=== PATIENT | female | born 1940 | race Caucasian/White ===

== ENCOUNTER 2022-04-12 03:55 | Inpatient (IN) | payer MEDICARE, BC, SELFPAY ==
--- NOTE | 2022-04-12 | ECHO_ITS ---
Patient Info Name: Lilliana Booth Age: 81 years : 1940 Gender: Female Ht: 63 in Wt: 124 lbs BSA: 1.58 m2 BP: 140 / 75 mmHg Heart Rhythm: Sinus Rhythm Technical Quality: Fair Exam Date: 04/12/2022 11:09 AM Exam Location: [facility] Patient Status: Outpatient Admit Date: 04/12/2022 Staff Ordering Physician: Trixie Andrade MD Rod Cup Filler: Celia Shultz RDCS Attending Provider: Trixie Andrade MD Referring Physician: Lupe CADET; Exam Type: CA echo doppler color flow Study Info Indications - syncope Complete two-dimensional, color flow and Doppler transthoracic echocardiogram is performed. Summary 1. Complete two-dimensional, color flow and Doppler transthoracic echocardiogram is performed. 2. Left ventricular chamber dimension is normal. 3. Left ventricular systolic function is normal, estimated at 60-65%. 4. The left ventricular diastolic function is grade I diastolic dysfunction. 5. E/e' 12 is mildly elevated. 6. The mitral valve has moderately calcified annulus. 7. There is trace tricuspid valve regurgitation. 8. No pulmonary hypertension, estimated pulmonary arterial systolic pressure is 31 mmHg. Left Ventricle E/e' 12 is mildly elevated. Left ventricular chamber dimension is normal. Left ventricular systolic function is normal, estimated at 60-65%. The left ventricular diastolic function is grade I diastolic dysfunction. Right Ventricle Right ventricular chamber dimension is normal. Right ventricular systolic function is normal. Left Atria Left atrial chamber dimension is normal. Right Atria Right atrial chamber dimension is normal. Aortic Valve The aortic valve is trileaflet. There is no aortic valve stenosis. There is no aortic valve regurgitation. Pulmonic Valve There is no pulmonic regurgitation. Mitral Valve The mitral valve has moderately calcified annulus. There is no mitral valve stenosis. There is mild mitral valve regurgitation. Tricuspid Valve There is trace tricuspid valve regurgitation. No pulmonary hypertension, estimated pulmonary arterial systolic pressure is 31 mmHg. Pericardium/Pleural There is no pericardial effusion. Inferior Vena Cava Normal inferior vena cava with >50% collapse upon inspiration consistent with normal right atrial pressure, 5 mmHg. Aorta The aortic root size at the sinus of Valsalva is normal. Left Ventricular Outflow Tract Name Value Normal LVOT 2D LVOT Diameter 2.0 cm LVOT Doppler LVOT Peak Gradient 3 mmHg LVOT Mean Gradient 2 mmHg LVOT VTI 15 cm LVOT VTI/AV VTI Ratio 0.8 LVOT Stroke Volume 47 ml LVOT CO 3.9 l/min LVOT CI 2.5 l/min/m2 Pulmonic Valve Name Value Normal RVOT Doppler
--- NOTE | ~2022-04-12 | CT_ITS ---
EXAMINATION: CT brain wo con DATE: 04/12/2022 04:42 INDICATION: Fall. Head trauma. TECHNIQUE: Computed tomography (CT) of the head was performed without intravenous contrast. The mA wa s adjusted according to patient size. Iterative reconstruction technique was employed. Exam dose: 60 5.33 mGy-cm total exam DLP. COMPARISON: 03/06/2019 CT head FINDINGS: There is central and cortical cerebral and cerebellar moderately prominent atrophy. Mild ce rebral atherosclerotic calcification. There is nonspecific diminished attenuation of the cerebral whi te matter, likely due to chronic small vessel ischemic changes. Chronic mild comparison thickening of the right sphenoid sinus. Mild soft tissue thickening of ethmoi d air cells. Small fluid level right maxillary sinus. The mastoid air cells are normally developed an d aerated. There is cephalohematoma high over the right parietal convexity with mild subcutaneous emphysema cons istent with associated laceration. No associated tumor contrecoup intracranial injury is noted. No fracture or bone destruction of the cranial vault. IMPRESSION: High right parietal cephalohematoma and subcutaneous emphysema; no skull fracture or acu te intracranial finding Small fluid level in the right maxillary sinus Chronic mild mucosal thickening of the right sphenoid sinus Reviewed, dictated and finalized at [facility]. Reviewed, dictated and finalized at location [facility]. IMPRESSION: High right parietal cephalohematoma and subcutaneous emphysema; no skull fracture or acute intracranial finding Small fluid level in the right maxillary sinus Chronic mild mucosal thickening of the right sphenoid sinus
--- NOTE | ~2022-04-12 | US_ITS ---
EXAMINATION: US carotid duplex BI DATE: 04/12/2022 09:17 INDICATION: Syncope TECHNIQUE: Grayscale, color Doppler, and pulsed Doppler images of the cervical carotid arteries were obtained. The degree of vessel stenosis is placed in one of the following categories: normal, <50%, 5 0-69%, >=70% but less than near-occlusion, near-occlusion, or total occlusion. Note that percent sten osis relative to normal distal artery lumen diameter is indirectly measured from velocity measurement s as described by Jim, et al. Radiology 2003; [id number]. COMPARISON: None. FINDINGS: RIGHT: The right common carotid artery (CCA) peak systolic velocity (PSV) is 94 cm/s. The right internal car otid artery (ICA) PSV is 118 cm/s. The right ICA end-diastolic velocity (EDV) is 28 cm/s. The right I CA/CCA PSV ratio is 1.2. Grayscale and color Doppler images yield an estimate of <50% diameter reduct ion from plaque in the ICA. The external carotid artery (ECA) PSV is 104 cm/s. There is antegrade ivanna w in the right vertebral artery. LEFT: The left CCA PSV is 78 cm/s. The left ICA PSV is 118 cm/s. The left ICA EDV is 19 cm/s. The left ICA/ CCA PSV ratio is 1.8. Grayscale and color Doppler images yield an estimate of 50-69% diameter reducti on from plaque in the ICA. The ECA PSV is 90 cm/s. There is antegrade flow in the left vertebral parisa ry. IMPRESSION: 1. <50% stenosis in the right internal carotid artery. 2. <50% stenosis in the left internal carotid artery. Reviewed, dictated and finalized at location [facility].
--- NOTE | ~2022-04-12 | XR_ITS ---
EXAMINATION: XR chest 1V DATE: 04/12/2022 04:36 INDICATION: Fall TECHNIQUE: frontal view of the chest was obtained. COMPARISON: Chest radiograph dated 03/06/2019 FINDINGS: The lungs remain clear with no focal airspace opacities, pulmonary edema, pleural effusion or pneumot horax. The cardiomediastinal silhouette is normal. Left rotator cuff arthropathy. Mild upper thoracic levocurvature with mild spondylosis. IMPRESSION: 1. No acute cardiopulmonary disease. Reviewed, dictated and finalized at location [facility].
--- NOTE | ~2022-04-12 | CT_ITS ---
EXAMINATION: CT facial & cervical spine wo DATE: 04/12/2022 04:42 INDICATION: Fall. Head, facial, neck injuries TECHNIQUE: Computed tomography (CT) of the facial bones and maxillofacial region and cervical spine w as performed without intravenous contrast. Automated exposure control and iterative reconstruction te chnique were employed. Exam dose: 173.39 mGy-cm total exam DLP. COMPARISON: None. FINDINGS: There is soft tissue infiltration of the adipose tissue lateral and superior to the right z ygomatic arch consistent with facial contusion, with minimal subcutaneous emphysema suggesting lacera tion. The orbital contents are symmetric and unremarkable. The frontozygomatic sutures, orbital rims and rose and zygomatic arches are intact. Normal alignment at the temporal mandibular joints. No man dibular fracture is detected. There are subtle buckling of the anterior wall of the right maxillary sinus and the posterolateral wa ll of the right maxillary sinus are noted with minimal subcutaneous emphysema in the anterior and pos terior lateral aspects of the maxillary sinus at the fracture sites, consistent with virtually nondis placed maxillary fractures. Left maxillary sinus is intact. There is a small fluid level in the right maxillary sinus. There is mild mucoperiosteal thickening in the lower aspect of each maxillary sinus and chronic mucoperiosteal thickening along the posterolate ral wall of the right sphenoid sinus. The mastoid air cells are normally developed and aerated. The nasal bones and anterior maxillary spine are intact. There is reversal cervical curvature which may be due to muscle spasm or positioning. C1 and C2 are normally aligned and the odontoid process is intact. No fracture or dislocation, locked facet or prevertebral soft tissue swelling. Moderate prominent degenerative disc disease at C3-4, C4-5, C5-6, C6-7. There is posterior spurring a t C5-C6 and particularly C6-7. Minimal anterolisthesis at C7-T1. There is degenerative change at the apophyseal joints and uncovertebral joints. Status post right thyroid lobectomy IMPRESSION: Virtually nondisplaced focal buckle fractures at the anterior and posterolateral rose o f the right maxillary sinus with small fluid level in the right maxillary sinus, minimal subcutaneous emphysema adjacent to the maxillary fracture sites Reversal of cervical curvature which may be due to muscle spasm Cervical spondylosis; no cervical fracture is detected Dr. Cramer telephoned the report of focal subtle virtually nondisplaced buckle fractures of the anterio r and posterolateral rose of the right maxillary sinus to emergency room physician Dr. Brumfield on at 0831 hours. Reviewed, dictated and finalized at [facility]. Reviewed, dictated and finalized at location [facility]. IMPRESSION: Virtually nondisplaced focal buckle fractures at the anterior and posterolateral rose of the right maxillary sinus with small fluid level in the right maxillary sinus, minimal subcutaneous emphysema adjacent to the maxillar y fracture sites Reversal of cervical curvature which may be due to muscle spasm Cervical spondylosis; no cervical fracture is detected Dr. Cramer telephoned the report of focal subtle virtually nondisplaced buckle fr actures of the anterior and posterolateral rose of the right maxillary sinus t o emergency room physician Dr. Brumfield on 04/12/2022 at 0831 hours.
[2022-04-12 03:55] VITALS: BP 157/75; PULSE 97; RESP 18; TEMP 36.6; O2SAT 100
--- NOTE | 2022-04-12 04:13 | ECG_ITS ---
Measurements Intervals [place] Rate: 95 P: 74 VA: 156 QRS: -10 QRSD: 95 T: 32 QT: 329 QTc: 414 Interpretive Statements SINUS RHYTHM BASELINE ARTIFACT- I, II, III, AVR, AVL, V1-V2, V4-V5 NORMAL ECG Electronically Signed On 04-12-2022 7:00:50 CDT by Justino Flores D.O.
[2022-04-12] MEDS: ACETAMINOPHEN 500 MG TABLET 1000 MG PO ×2 (04:40→09:05)
[2022-04-12] MEDS: TETANUS,DIPHTHERIA,AC PERTUSSIS ADULT (0.5 ML) BOOSTRIX IM (04:41)
[2022-04-12 05:07] LABS: Basophils Absolute Auto 0.1 K/mm3 (0.0-0.1); Basophils Percent Auto 0.5 % (0.2-1.2); Eosinophils Percent Auto 0.1 % (0-4.4); Hematocrit 41.9 % (37.0-47.0); Hemoglobin 13.6 g/dL (12.0-15.0); Immature Granulocyte Absolute 0.14 K/mm3 (0.00-0.031); Immature Granulocyte Percent A 1.2 % (0-0.5); Lymphocytes Absolute Auto 0.61 K/mm3 (0.9-3.2); Lymphocytes Percent Auto 5.1 % (18.3-44.2); Mean Corpuscular HGB Conc 32.5 g/dl (32-36); Mean Corpuscular Hemoglobin 31.3 pg (26-34); Mean Corpuscular Volume 96.5 fl (80-100); Mean Platelet Volume 9.7 fl (7.4-10.4); Monocytes Absolute Auto 0.7 K/mm3 (0.1-0.6); Monocytes Percent Auto 5.6 % (2.6-8.5); Neutrophils Absolute Auto 10.4 K/mm3 (1.3-6.7); Neutrophils Percent Auto 87.5 % (45.5-73.1); Platelet Count Result 249 k/mm3 (150-375); Red Blood Count 4.34 M/mm3 (4.2-5.4); Red Cell Distribution Width 12.6 % (11.5-14.5); White Blood Count 11.9 K/mm3 (4.5-10.0)
[2022-04-12 05:19] LABS: Appearance Urine Clear (Clear); Bilirubin Urine Negative (Negative); Blood Urine 1+ (Negative); Color Urine Yellow (Yellow); Glucose Urine UA Negative (Negative); Ketones Urine Negative (Negative); Leukocyte Esterase Ur Negative LEU/UL (Negative); Nitrate Urine Negative (Negative); Protein Urine 1+ mg/dL (Negative); Urobilinogen Urine 0.2 mg/dL (<2.0); pH Urine 7.5 (5.0-9.0)
[2022-04-12 05:23] LABS: Alanine Aminotransferase 24 U/L (6-35); Albumin Level 4.5 g/dL (3.5-5.1); Alkaline Phosphatase 79 U/L (38-126); Anion Gap 8 mmol/L (8-16); Aspartate Amino Transferase 42 U/L (14-36); Bilirubin,Total 0.8 mg/dL (0.2-1.3); Blood Urea Nitrogen 15 mg/dL (7-17); Calcium 9.1 mg/dL (8.4-10.2); Carbon Dioxide 28 mmol/L (22-30); Chloride 101 mmol/L (98-107); Estimated CRCL calculation 44 ml/min; Estimated Glomerular Filt Rate > 60; Glucose 116 mg/dL (65-110); Magnesium 2.1 mg/dL (1.6-2.3); Sodium 137 mmol/L (137-145)
[2022-04-12 05:24] LABS: Mucus Urine Rare /lpf; Squamous Epithelial Cell Urine Rare /hpf (Few); WBC Urine 0-3 /hpf
[2022-04-12 05:29] LABS: Add Urine Microscopic? YES
[2022-04-12 05:54] LABS: SARS-CoV-2 RNA PCR Positive
--- NOTE | 2022-04-12 06:47 | ED.HEATRA ---
HPI - Head Injury General Chief complaint: Head Injury Stated complaint: GLF, HEAD LAC Time Seen by Provider: 04/12/22 03:59 History of Present Illness HPI Narrative: 81-year-old female who presents here after she went to the bathroom, and then fell and hit her head, she is not exactly sure what happened but states that over the last few days she has been having increased nasal congestion and sinus discomfort, with feeling of vertigo, nausea and vomiting. She also has been having decreased appetite and has not been eating or drinking as much as usual. No cough, difficulty breathing, chest pain, no new focal numbness or weakness, minimal headache. Unsure last tetanus shot. Has had similar symptoms/vertigo in the past. Related Data Home Medications Medication Instructions Recorded Confirmed buspirone 10 mg tablet 10 mg PO BID 01/22/21 01/22/21 fluticasone furoate 27.5 1 spray intranasal DAILY 01/22/21 01/22/21 mcg/actuation nasal spray,suspension (Flonase Sensimist) ibuprofen 200 mg tablet 200 mg PO Q6H PRN 01/22/21 01/22/21 loratadine 10 mg tablet (Claritin) 10 mg PO DAILY 01/22/21 01/22/21 multivitamin 1 tablet PO DAILY 01/22/21 01/22/21 omega-3 fatty acids 1,000 mg 1,000 mg PO DAILY 01/22/21 01/22/21 capsule (Fish Oil Concentrate) Allergies Allergy/AdvReac Type Severity Reaction Status Date / Time Penicillins Allergy Severe RASH Verified 04/12/22 04:01 Sulfa (Sulfonamide Allergy Severe RASH Verified 04/12/22 04:01 Antibiotics) Review of Systems Review of Systems: CONST: No fever. HEENT: Head injury, no blurry vision, runny nose C/V: No chest pain RESP: No cough GI: Nausea vomiting : No dysuria. M/S: No joint pain. SKIN: No rash. NEURO: Vertigo without focal numbness or weakness PSYCH: [No depression] [facility] Past Medical History Medical History (Updated 04/12/22 @ 08:08 by Cheli Mercedes MD) Subjective tinnitus of both ears Social History Social History Smoking status: Never smoker Alcohol intake: never Substance use: never Exam Narrative: EXAMINATION OF ORGAN SYSTEMS/BODY AREAS: Constitutional: Vital signs per nursing GENERAL:[No acute distress, non-toxic appearing.] HEAD: Contusion to right side of face with 3 cm laceration that is superficial, not gaping EYES: EOMI, right eye contusion without change in vision ENT: Left ear impacted cerumen LUNGS: Nonlabored breathing. HEART: [Regular rate and rhythm] ABD: [Soft], [nontender to palpation] EXT: Normal range of motion SKIN: Laceration to right side of face NEURO: [Alert and oriented x 3. No gross focal sensory or strength deficits.] PSYCH: Normal affect Course Vital Signs Vital signs: Vital Signs Temperature 97.9 F 04/12/22 03:55 Pulse Rate 97 04/12/22 03:55 Respiratory Rate 18 04/12/22 03:55 Blood Pressure 157/75 H 04/12/22 03:55 Pulse Oximetry 100 04/12/22 03:55 Oxygen Delivery Room Air 04/12/22 03:55 Temperature 97.9 F 04/12/22 03:55 Pulse Rate 88 04/12/22 07:01 Respiratory Rate 16 04/12/22 07:01 Blood Pressure 140/75 04/12/22 07:01 Pulse Oximetry 95 04/12/22 07:01 Oxygen Delivery Room Air 04/12/22 03:55 Procedures Ear Wax Removal Left Ear: Cerumenolytic Used: other Results: Re-examined: cerumen removed completely TM Examination: TM(s) intact, normal appearance Ear Canal Exam: atraumatic Patient Tolerated Procedure: well Complications: no problems Technique: ear canal irrigated Laceration Laceration 1: Site: face Side (If applicable): right Size (cm): 3 Description: linear Depth: simple, single layer Local Anesthetic: none Pre-repair: wound explored, irrigated and irrigated extensively ====== Skin Level ====== Skin layer closed with: dermabond and steri strips ====== Subcutaneous Layer ====== ==
[2022-04-12] MEDS: LACTATED RINGERS 1,000 ML 999 ML IV CONT (06:56)
[2022-04-12] MEDS: ONDANSETRON INJ 4 MG/2 ML VIAL IV PUSH (06:57)
[2022-04-12] MEDS: MECLIZINE HCL 25 MG TABLET PO (06:58)
[2022-04-12 07:01] VITALS: BP 140/75; PULSE 88; RESP 16; O2SAT 95
[2022-04-12] MEDS: ENOXAPARIN 40 MG/0.4 ML SYRINGE SUB-Q (09:05)
--- NOTE | 2022-04-12 12:50 | PM.IMHP ---
H&P: HPI History of Present Illness Date/Time: 04/12/22 12:50 <Becki Murray PA-C - Last Filed: 04/12/22 21:45> Chief Complaint: Ground level fall. <Becki Murray PA-C - Last Filed: 04/12/22 21:45> Narrative: This is an 81-year-old female who presented to the emergency department via EMS from home earlier this morning for evaluation of a ground level fall. The patient got up at around 03:00 to use the restroom and she does not remember much thereafter. Daughter was wakened from sleep with the patient calling out for help and she was found in the prone position on the bathroom floor. She felt a bit nauseated at that time but that has since passed. She and her daughter were able to get her up and back to bed. She denies antecedent symptoms prior to the fall but admits that she does not really remember what happened. With further questioning she has not been feeling well for the last several days with sinus congestion, vertigo, nausea, and occasional episodes of emesis. She tested positive for SARS-CoV-2 by PCR in the emergency department today and she tells me that her daughter had COVID earlier this week. CT of the head and cervical spine demonstrated a right parietal cephalohematoma and a virtually nondisplaced focal buckle fracture of the anterior and posterolateral rose of the right maxillary sinus. It is presumed that she had a syncopal episode and she is being admitted in this setting for further workup. At the time my evaluation she has no significant complaints aside from generalized ?arthritis? pain and she is requesting a Tylenol Arthritis. She denies headache, visual changes, vertigo, lightheadedness, chest pain, pleuritic pain, palpitations, shortness of breath, vomiting, and diarrhea. <Becki Murray PA-C - Last Filed: 04/12/22 21:45> Review of Systems Review of Systems: Twelve systems were reviewed and are negative except for as per HPI. <Becki Murray PA-C - Last Filed: 04/12/22 21:45> [facility] Past Medical History Medical History: Medical History Anxiety Osteoporosis <Becki Murray PA-C - Last Filed: 04/12/22 21:45> Surgical History Surgical History: Surgical History History of colonoscopy (01/2019) Diverticulosis and internal hemorrhoids. History of partial thyroidectomy Status post-operative repair of closed fracture of left hip (08/2011) <Becki Murray PA-C - Last Filed: 04/12/22 21:45> Family History Family History: Family History Other Cancer Colon polyp Diabetes mellitus <Becki Murray PA-C - Last Filed: 04/12/22 21:45> Social History Social History: Social History Social History: Surrogate medical decision maker: Abiola Mireles, daughter. Code status: Full code. Smoking status: Never smoker Alcohol intake: never Substance use: never Substance use type: does not use Additional living arrangements comments: The patient lives with her daughter in [place]. Spiritual care concerns: No <Becki Murray PA-C - Last Filed: 04/12/22 21:45> Meds Home Medications and Allergies Home medications: Home Medications Medication Instructions Recorded Confirmed Type buspirone 10 mg tablet 10 mg PO BID 01/22/21 04/12/22 History fluticasone furoate 27.5 1 spray intranasal DAILY 01/22/21 04/12/22 History mcg/actuation nasal spray,suspension (Flonase Sensimist) ibuprofen 200 mg tablet 200 mg PO Q6H PRN Fever Or Pain 01/22/21 04/12/22 History loratadine 10 mg tablet (Claritin) 10 mg PO DAILY 01/22/21 04/12/22 History multivitamin 1 tablet PO DAILY 01/22/21 04/12/22 History omega-3 fatty acids 1,000 mg 1,000 mg PO DAILY 01/22/21 04/12/22 History capsule (F
[2022-04-12 19:50] VITALS: PULSE 88; RESP 16; TEMP 36.6; O2SAT 95
[2022-04-12 22:00] VITALS: BP 176/81; PULSE 106; RESP 20; TEMP 38.4; O2SAT 94
[2022-04-13] VITALS (11 sets, daily range): BP systolic 104–145; BP diastolic 54–79; PULSE 68–106; RESP 16–24; TEMP 36.6–38.4; O2SAT 93–98
[2022-04-13] MEDS: busPIRone HCL 10 MG TABLET PO ×3 (00:14→16:32)
[2022-04-13] MEDS: ACETAMINOPHEN 325 MG TABLET 650 MG PO (00:14)
[2022-04-13 06:29] LABS: Hemoglobin 12.8 g/dL (12.0-15.0); Platelet Count Result 220 k/mm3 (150-375); Red Cell Distribution Width 12.9 % (11.5-14.5); White Blood Count 7.9 K/mm3 (4.5-10.0)
[2022-04-13 06:41] LABS: Anion Gap 4 mmol/L (8-16); Blood Urea Nitrogen 17 mg/dL (7-17); CRP 8.3 mg/dL (<1.0); Calcium 8.5 mg/dL (8.4-10.2); Carbon Dioxide 32 mmol/L (22-30); Chloride 103 mmol/L (98-107); Estimated CRCL calculation 51 ml/min; Estimated Glomerular Filt Rate > 60; Glucose 84 mg/dL (65-110); Magnesium 2.2 mg/dL (1.6-2.3); Potassium 4.1 mmol/L (3.4-5.0); Sodium 139 mmol/L (137-145)
--- NOTE | 2022-04-13 09:25 | PM.IMPN ---
Progress Note: A&P Assessment and Plan (1) Syncope: Code(s): R55 - Syncope and collapse Status: Acute Assessment and Plan: - Telemetry is stable at NSR. - Orthostatic Vital Signs negative. - ECHO performed and demonstrates normal LVSF w/EF of 60-65%. - There is grade 1 Diastolic dysfunction. - No Pulmonary HTN. - Carotid Dopplers demonstrate <50% stenosis in both the Right ICA and the Left ICA. - Continue fall precautions. - Repeat labs and recheck labs. - PT evaluation was performed and they are recommending SNF upon placement. Care coordination consult placed. (2) Closed head injury: Code(s): S09.90XA - Unspecified injury of head, initial encounter Status: Acute Assessment and Plan: - Neuro checks demonstrate intact status. - Hematoma is noted to right parietal scalp. - No vomiting and no headache now 24 hours after the initial fall. She does endorse dizziness to the RN. - Hold any blood thinning agents. (3) Maxillary sinus fracture: Code(s): S02.401A - Maxillary fracture, unspecified side, initial encounter for closed fracture Status: Acute Assessment and Plan: - Case discussed with Dr. Buckner and she can follow-up with him as an outpatient. (4) COVID-19: Code(s): U07.1 - COVID-19 Status: Acute Assessment and Plan: - Was noted to not be a candidate for Remdesivir and Dex and was out of window for Paxlovid. - Supportive care will be continued. - Continue to monitor labs and VS. She is not requiring any supplemental oxygen. Additional Plan Barrier to discharge: Awaiting Care coordination to assist with discharge planning. Time Spent With Patient Time: 17 minutes Subjective Date/time seen: 04/13/22 09:25 This very pleasant 81-year-old female patient was examined at the bedside today in interval assessment after being admitted to the hospital positive for COVID-19 with a new ground level fall yesterday that was questionable for syncopal episode. In that fall she sustained a right parietal hematoma as well as a buckle fracture of the right maxillary sinus. Dr. Maya will follow up with patient as outpatient regarding the maxillary sinus fracture. Today patient has just finished eating breakfast, she says her pain is currently tolerable although she does endorse headache and some dizziness. She has normal neurological status otherwise and EOMs are intact. She denies any chest pain, dyspnea, nausea, vomiting, diarrhea, dysuria, hematuria, urinary frequency. She still has not been evaluated by Physical therapy for safety to return home. She endorses that her daughter and her daughters spouse lives with her at home. Review of Systems Review of Systems: Twelve point review of systems was reviewed. All systems reviewed & are unremarkable except as noted in HPI and below Exam Const: General: comfortable and no acute distress Other: Sitting high Walden's HENMT: Ears: TM's normal bilaterally (Specifically no right-sided hemo tympanum.) General nose exam: Normal nares present and no epistaxis Mouth: Yes moist mucous membranes Eyes: General: appearance abnormal, both eyes (Ecchymosis around the right eye with tenderness.) Sclera: scleral abnormality right (Appears bruised, yellowish in color, but not icteric.) Pupils: Equal, round and reactive pupils present EOM: EOMs intact bilaterally Other: No nystagmus. Neck: Neck: supple and no JVD Thyroid: thyroid normal Carotids: no bruits Lymphatic: lymphadenopathy not noted Resp: Effort & Inspection: normal respiratory effort Auscultation: clear to auscultation bilaterally Cardio: Rate: regular rate Rhythm: regular rhythm Heart sounds: no gallops, no murmurs and no rubs GI: Inspection: non-distended GI Palp: Yes Soft to palpation, No Tenderness to palpation present (GI) and No Guarding due to palpation present (GI) Auscultation: normal bowel sounds Skin: General skin exam: No nor
[2022-04-13] MEDS: OMEGA 3 POLYUNSAT FATTY ACIDS 1 GM CAP PO (10:22)
[2022-04-13] MEDS: MULTIVITAMINS THERAPEUTIC TAB (*BKC) 1 TABLET PO (10:23)
[2022-04-13] MEDS: LORATADINE 10 MG TABLET PO (10:23)
[2022-04-13] MEDS: FLUTICASONE PROPIONATE 0.05% NA SPR 16 GM BTL (*BKC) 1 SPRAY NASAL (10:34)
[2022-04-14] VITALS: BP 133/76; PULSE 91; PULSE 93; RESP 16; TEMP 37.7; O2SAT 96
[2022-04-14 04:00] VITALS: BP 141/80; PULSE 97; RESP 18; TEMP 37.4; O2SAT 95
[2022-04-14 06:30] LABS: Basophils Percent Auto 0.6 % (0.2-1.2); Eosinophils Absolute Auto 0.1 K/mm3 (0-0.3); Eosinophils Percent Auto 1.7 % (0-4.4); Hematocrit 37.2 % (37.0-47.0); Hemoglobin 12.4 g/dL (12.0-15.0); Immature Granulocyte Absolute 0.02 K/mm3 (0.00-0.031); Immature Granulocyte Percent A 0.3 % (0-0.5); Lymphocytes Absolute Auto 1.57 K/mm3 (0.9-3.2); Lymphocytes Percent Auto 22.6 % (18.3-44.2); Mean Corpuscular HGB Conc 33.3 g/dl (32-36); Mean Corpuscular Volume 95.9 fl (80-100); Mean Platelet Volume 9.7 fl (7.4-10.4); Monocytes Absolute Auto 0.6 K/mm3 (0.1-0.6); Monocytes Percent Auto 9.1 % (2.6-8.5); Neutrophils Absolute Auto 4.6 K/mm3 (1.3-6.7); Neutrophils Percent Auto 65.7 % (45.5-73.1); Platelet Count Result 195 k/mm3 (150-375); Red Blood Count 3.88 M/mm3 (4.2-5.4); Red Cell Distribution Width 12.8 % (11.5-14.5)
[2022-04-14 06:38] LABS: Alanine Aminotransferase 15 U/L (6-35); Albumin Level 3.5 g/dL (3.5-5.1); Alkaline Phosphatase 61 U/L (38-126); Anion Gap 5 mmol/L (8-16); Aspartate Amino Transferase 31 U/L (14-36); Bilirubin,Total 0.7 mg/dL (0.2-1.3); Blood Urea Nitrogen 22 mg/dL (7-17); Calcium 8.1 mg/dL (8.4-10.2); Carbon Dioxide 30 mmol/L (22-30); Chloride 102 mmol/L (98-107); Estimated CRCL calculation 51 ml/min; Estimated Glomerular Filt Rate > 60; Glucose 98 mg/dL (65-110); Magnesium 2.1 mg/dL (1.6-2.3); Potassium 3.4 mmol/L (3.4-5.0); Sodium 137 mmol/L (137-145)
--- NOTE | 2022-04-14 07:38 | PM.DS ---
DS: Admitting Diagnosis Discharge Date 04/14/2022 Admitting Diagnosis Syncope, Closed head injury, Maxillary sinus fracture, COVID-19 DS: Discharge Diagnosis Discharge Diagnosis (1) Syncope: Code(s): R55 - Syncope and collapse Status: Acute Assessment and Plan: - Telemetry is stable at [facility]. - Orthostatic Vital Signs negative. - ECHO performed and demonstrates normal LVSF w/EF of 60-65%. - There is grade 1 Diastolic dysfunction. - No Pulmonary HTN. - Carotid Dopplers demonstrate <50% stenosis in both the Right ICA and the Left ICA. - Pt. has remained on fall precautions during this hospitalization. - PT evaluation was performed and they are recommending SNF upon placement, however, patient's daughter and the pt neither want her to go to a SNF. She will be cared for at home by her daughter instead and they are agreeable to home health consult after discharge. - Pt. has been asymptomatic during this hospitalization. (2) Closed head injury: Code(s): S09.90XA - Unspecified injury of head, initial encounter Status: Acute Assessment and Plan: - Neuro checks continue to demonstrate intact status and no symptoms of N/V and no gait instability. - Hematoma is noted to right parietal scalp appears to have regressed just since yesterday. - Now asymptomatic. - Will continue all home medications. (3) Maxillary sinus fracture: Code(s): S02.401A - Maxillary fracture, unspecified side, initial encounter for closed fracture Status: Acute Assessment and Plan: - Case discussed with Dr. Buckner and she can follow-up with him as an outpatient. Recommend waiting at least 5 days of outpatient quarantine. (4) COVID-19: Code(s): U07.1 - COVID-19 Status: Acute Assessment and Plan: - Received supportive care. - Recommend an additional 5 day quarantine at home upon discharge. DS: Summary Hospital Course Reason for hospitalization: Suspected Syncopal episode with closed head injury Hospital Course: This pleasant 81 year old female patient with significant PMH of anxiety and osteoporosis presented to the ER on 04/12/22 after sustaining a GLF at home. She reports that she got up to use the restroom at approximately 0300 and initially didn't remember falling, but this morning on exam she endorses that she had dropped some tissue, grabbed her marble window sill to steady herself to bend over and pick it up and subsequently fell. The pt. did sustain a closed head injury to the right nondenominational and had repair with steri strips. In the ER she had head CT that showed a right parietal hematoma and no acute intracranial findings. Her facial CT demonstrated a non-displaced focal buckle fracture at the anterior and posterolateral rose of hte right maxillary sinus with small fluid level in the right maxillary sinus, with minimal subcutaneous emphysema adjacent to the maxillary fracture sites. Additional workup she had revealed negative Orthostatic vital signs and she had normal Carotid artery duplex and ECHO was performed that was negative for any acute findings that would explain her injury and fall. Coincidentally as part of our admission assessment, the patient had a COVID-19 screen that returned positive. She did not have any overt symptoms, just a runny nose for a few days and feeling tired. Her daughter had COVID one week ago. She is fully vaccinated and has remained stable here during this admission without any supplemental oxygenation. The pt was not a candidate for Remdesivir or Paxlovid. The pt. lives at home with her daughter and was evaluated by PT for safety to return home and SNF was recommended. Both the patient and her daughter at this time desire not to go to a SNF as her daughter states she works from home and can care for her, but are agreeable to home health services. The pt. has remained asymptomatic with exception of an expected headache that is relieved with Tylenol. She is stable to ret
[2022-04-14 08:00] VITALS: BP 138/82; PULSE 60; PULSE 90; RESP 18; TEMP 37.3; O2SAT 97
[2022-04-14 08:57] VITALS: O2SAT 94
[2022-04-14] MEDS: FLUTICASONE PROPIONATE 0.05% NA SPR 16 GM BTL (*BKC) 1 SPRAY NASAL (09:41)
[2022-04-14] MEDS: busPIRone HCL 10 MG TABLET PO (09:41)
[2022-04-14] MEDS: LORATADINE 10 MG TABLET PO (09:41)
[2022-04-14] MEDS: OMEGA 3 POLYUNSAT FATTY ACIDS 1 GM CAP PO (09:42)
[2022-04-14] MEDS: MULTIVITAMINS THERAPEUTIC TAB (*BKC) 1 TABLET PO (09:42)
[2022-04-14 12:00] VITALS: BP 140/76; PULSE 92; RESP 18; TEMP 36.3; O2SAT 98
== END 2022-04-14 13:00 | disposition home health service (06) | DRG 640 ==
LOC: ANHED 09:37 → ANH3MEDSUR 10:51
PROVIDERS: Physician Assistant; Admitting Provider Family Medicine; Emergency Provider Emergency Medicine; PCP Family Medicine Adolescent Medicine; Visit Provider Nurse Practitioner Adult Health
DX: E86.0 Dehydration (principal); U07.1 COVID-19; S02.40CA Maxillary fracture, right side, initial encounter for closed fracture; R55 Syncope and collapse; S00.03XA Contusion of scalp, initial encounter; S01.81XA Laceration without foreign body of other part of head, initial encounter; H61.22 Impacted cerumen, left ear; M81.0 Age-related osteoporosis without current pathological fracture; R29.700 NIHSS score 0; F41.9 Anxiety disorder, unspecified; W19.XXXA Unspecified fall, initial encounter; Z23 Encounter for immunization
CPT/HCPCS: 12013; 36415; 69209; 70450; 70486; 71045; 72125; 80048; 80053; 81001; 83735; 85025; 85027; 86140; 90471; 90715; 93005; 93306; 93880; 96361; 96372; 96374; 97161; 99285; A9270; C9803; G0378; J1650; J2405; J7120; U0003; U0005

== ENCOUNTER 2023-10-18 09:38 | Inpatient (IN) | payer MEDICARE, BC, SELFPAY ==
[2023-10-18] VITALS (11 sets, daily range): BP systolic 110–179; BP diastolic 54–91; PULSE 63–95; RESP 16–20; TEMP 36.4–37; O2SAT 95–99
--- NOTE | ~2023-10-18 | XR_ITS ---
EXAMINATION: XR chest 2V DATE: 10/18/2023 10:46 INDICATION: Cough and upper respiratory infection TECHNIQUE: AP and lateral views of the chest are obtained. COMPARISON: 04/12/2022 FINDINGS: The lungs are free of acute opacities. No pleural effusion or pneumothorax. The cardiomedia stinal silhouette is normal. There is mild thoracic spondylosis. IMPRESSION: 1. No acute cardiopulmonary abnormality. Reviewed, dictated and finalized at location F. SECURITY OFFICER
--- NOTE | ~2023-10-18 | CT_ITS ---
EXAMINATION: CT brain wo con INDICATION: Transient alteration of awareness COMPARISON: 04/12/2022 TECHNIQUE: Standard unenhanced head CT. The dose-length product (DLP) was 529.67 mGy-cm. The mA was a djusted according to patient size. Iterative reconstruction technique was employed. FINDINGS: No acute intraparenchymal hemorrhage. No evidence of mass lesion. No evidence of acute infa rction. There is mild periventricular and subcortical hypodensity probably related to small vessel is chemic disease. There is moderate prominence of the sulci and ventricles related to cerebral atrophy. Intracranial calcified cerebral atherosclerosis is noted. No extra-axial collections. No mass effect or midline shift. The orbits and soft tissues are unremarkable. There is mild mucosal thickening of the paranasal sinuses. IMPRESSION: 1. No acute intracranial abnormality. 2. Age related findings. 2. Sinus disease. Reviewed, dictated and finalized at location F. O GAME PRODUCER
--- NOTE | 2023-10-18 09:44 | ED.SYNCOPE ---
HPI - Syncope General Chief Complaint: Syncope <KHADRA Castaneda Last Filed: 10/18/23 14:44> Stated Complaint: syncopal <KHADRA Castaneda Last Filed: 10/18/23 14:44> Time Seen by Provider: 10/18/23 09:39 <KHADRA Castaneda Last Filed: 10/18/23 14:44> Source: patient and family <KHADRA Castaneda Last Filed: 10/18/23 14:44> Mode of arrival: EMS <KHADRA Castaneda Last Filed: 10/18/23 14:44> Limitations: no limitations <KHADRA Castaneda Last Filed: 10/18/23 14:44> History of Present Illness HPI narrative: patient is an 82-year-old female who presents to the ED via EMS with report of syncope. Patient reports she woke up feeling fine this morning, but began feeling lightheaded after having her morning coffee. She was walking across her kitchen with her walker when she felt near syncopal. Her daughter was nearby and was able to place a chair behind her for her to sit down. Patient then had a witnessed syncopal episode. Daughter reports she lost consciousness for approximately 1 minute and was out of it for several minutes afterwards. No seizure-like activity. She did get nauseous afterwards, but denied vomiting. EMS was then called. Patient states she does still feel somewhat lightheaded currently. She reports URI symptoms over the last few days, including cough, congestion, headache, sinus pressure. Daughter does mention history of vertigo and states she has had syncopal episodes related to this in the past. Patient states this did not feel similar to previous vertigo. She denies shortness of breath, chest pain, fevers, focal weakness or numbness, slurred speech, vision changes. <KHADRA Castaneda Last Filed: 10/18/23 14:44> Related Data Home Medications: Home Medications Medication Instructions Recorded Confirmed multivitamin 1 tablet PO DAILY 01/22/21 02/27/23 omega-3 fatty acids 1,000 mg 1,000 mg PO DAILY 01/22/21 02/27/23 capsule (Fish Oil Concentrate) acetaminophen 325 mg capsule 325 mg PO Q6H PRN 02/27/23 02/27/23 (Tylenol) ascorbic acid (vitamin C) 500 mg 250 mg PO DAILY 02/27/23 02/27/23 tablet calcium carbonate 600 mg-vitamin tablet PO 02/27/23 02/27/23 D3 10 mcg (400 unit) chewable tablet (Calcium 600 with Vitamin D3) <Nay Flores PA-C - Last Filed: 10/18/23 14:44> Allergies/Adverse Reactions: Allergies Allergy/AdvReac Type Severity Reaction Status Date / Time Penicillins Allergy Severe RASH Verified 10/18/23 09:46 Sulfa (Sulfonamide Allergy Severe RASH Verified 10/18/23 09:46 Antibiotics) <Nay Flores PA-C - Last Filed: 10/18/23 14:44> Review of Systems Review of Systems: CONSTITUTIONAL: Denies fever, chills, or sweats. ENT: See HPI CARDIOVASCULAR: Denies chest pain. RESPIRATORY: See HPI GASTROINTESTINAL: See HPI NEUROLOGIC: See HPI <Nay Flores PA-C - Last Filed: 10/18/23 14:44> All systems reviewed & are unremarkable except as noted in HPI and below <Nay Flores PA-C - Last Filed: 10/18/23 14:44> [facility] Past Medical History Medical History: Medical History (Updated 10/18/23 @ 15:17 by Laura Farris APRN) Anxiety Facial fracture due to fall R side near eye Osteoporosis <Nay Flores PA-C - Last Filed: 10/18/23 14:44> Surgical History Surgical History: Surgical History History of colonoscopy (01/2019) Diverticulosis and internal hemorrhoids. History of partial thyroidectomy Status post-operative repair of closed fracture of left hip (08/2011) <Nay Flores PA-C - Last Filed: 10/18/23 14:44> Family History Family History: Family History Other Cancer Colon polyp Diabetes mellitus <Nay Flores PA-C - Last Filed:
--- NOTE | 2023-10-18 09:48 | ECG_ITS ---
Measurements Intervals [place] Rate: 61 P: 59 WV: 146 QRS: -26 QRSD: 108 T: 16 QT: 406 QTc: 411 Interpretive Statements SINUS RHYTHM LEFTWARD AXIS Electronically Signed On 10-18-2023 12:35:31 SQL SERVER DBA by Javier Pardo M.D.
[2023-10-18 09:53] LABS: Glucose Point of Care 105 mg/dl (65-105)
[2023-10-18 10:24] LABS: Basophils Percent Auto 0.5 % (0.2-1.2); Eosinophils Absolute Auto 0.1 K/mm3 (0-0.3); Eosinophils Percent Auto 1.8 % (0-4.4); Hematocrit 39.6 % (37.0-47.0); Hemoglobin 12.9 g/dL (12.0-15.0); Immature Granulocyte Absolute 0.02 K/mm3 (0.00-0.031); Immature Granulocyte Percent A 0.3 % (0-0.5); Lymphocytes Absolute Auto 1.49 K/mm3 (0.9-3.2); Lymphocytes Percent Auto 20.4 % (18.3-44.2); Mean Corpuscular HGB Conc 32.6 g/dl (32-36); Mean Corpuscular Hemoglobin 31.5 pg (26-34); Mean Corpuscular Volume 96.8 fl (80-100); Mean Platelet Volume 9.5 fl (7.4-10.4); Monocytes Absolute Auto 0.6 K/mm3 (0.1-0.6); Monocytes Percent Auto 8.6 % (2.6-8.5); Neutrophils Percent Auto 68.4 % (45.5-73.1); Platelet Count Result 234 k/mm3 (150-375); Red Blood Count 4.09 M/mm3 (4.2-5.4); Red Cell Distribution Width 12.7 % (11.5-14.5); White Blood Count 7.3 K/mm3 (4.5-10.0)
[2023-10-18] MEDS: SODIUM CHLORIDE 0.9% IV 1,000 ML 999 ML IV CONT ×2 (10:28→13:21)
[2023-10-18 10:36] LABS: Alanine Aminotransferase 15 U/L (6-35); Albumin Level 3.9 g/dL (3.5-5.1); Alkaline Phosphatase 72 U/L (38-126); Anion Gap 6 mmol/L (8-16); Aspartate Amino Transferase 28 U/L (14-36); Bilirubin,Total 0.7 mg/dL (0.2-1.3); Blood Urea Nitrogen 17 mg/dL (7-17); Calcium 9.5 mg/dL (8.4-10.2); Carbon Dioxide 27 mmol/L (22-30); Chloride 107 mmol/L (98-107); Estimated CRCL calculation 43 ml/min; Estimated Glomerular Filt Rate > 60; Glucose 100 mg/dL (65-110); Magnesium 2.1 mg/dL (1.6-2.3); Potassium 3.8 mmol/L (3.4-5.0); Sodium 140 mmol/L (137-145)
[2023-10-18 10:38] LABS: Partial Thromboplastin Time 25.3 SECONDS (22.3-36.8); Prothrombin Time 13.5 Seconds (11.1-14.7)
[2023-10-18 10:45] LABS: Troponin I < 0.012 ng/mL (0.000-0.034)
[2023-10-18 10:46] LABS: D Dimer 0.62 ug/mL (<0.48)
[2023-10-18] MEDS: ONDANSETRON INJ 4 MG/2 ML VIAL IV PUSH (10:50)
[2023-10-18] MEDS: MECLIZINE HCL 25 MG TABLET PO (10:51)
[2023-10-18 11:13] LABS: Influenza A QL RT-PCR Negative (Negative); Influenza B QL RT-PCR Negative (Negative); RSV RNA, RT-PCR Positive (Negative); SARS-CoV-2 RNA PCR Negative (Negative)
[2023-10-18 11:14] LABS: Appearance Urine Clear (Clear); Bacteria Urine None Seen /hpf; Bilirubin Urine Negative (Negative); Color Urine Yellow (Yellow); Glucose Urine UA Negative (Negative); Ketones Urine Negative (Negative); Leukocyte Esterase Ur Negative LEU/UL (Negative); Nitrate Urine Negative (Negative); Non Pathogenic Casts 0-2; Protein Urine Trace mg/dL (Negative); Specific Grav Ur 1.013 (1.001-1.035); Squamous Epithelial Cell Urine None seen /hpf (Few); Urobilinogen Urine 0.2 mg/dL (<2.0); WBC Urine 0-5 /hpf; pH Urine 7.5 (5.0-9.0)
[2023-10-18 11:15] LABS: Add Urine Microscopic? YES
--- NOTE | 2023-10-18 13:13 | PM.IMHP ---
H&P: HPI History of Present Illness Date/Time: 10/18/23 13:13 Chief Complaint: Syncope Narrative: 82 y/o F presents here with syncope and URI with PMH of anxiety, vertigo, and osteoporosis. Patient presented here with syncope for approximately 1 minute. Patient reports that she was ambulating with her walker when she developed a pre-syncopal sensation she described as being sick to her stomach, dizziness, and like she would fall to the floor. Daughter assisted patient to a nearby chair. Shortly after sitting patient had the syncopal episode with associated diaphoresis. No preceding palpitations, CP, or clamminess. No seizure like activity witnessed. Post-syncope patient developed brief episode of nausea without vomiting and mildly diaphoretic. Patient reports she has been feeling unwell for the past few days, started around 10/15. She has been experiencing cough (scant/productive), congestion, HARR[place], and sinus pressure. No diarrhea. Has a hx of intermittent vertigo with subsequent syncope - does not take any medications for this at home. Last episode of vertigo and syncope/near syncope was 1 year ago. Despite receiving 1L of IVF patient continues to feel unwell, having difficulty describing symptoms. Currently endorsing HARRINGTON across eyebrows and nasal bridge/eyes. Currently denying chest pain, SOB, or dizziness. Reports she has been experiencing symptom where when she reaches for objects the depth is incorrect and feels off (i.e depth perception off). 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 Last eye exam years ago . Also reports her short term memory has been slipping more lately. Initial VS: 97.2F, HR 65, RR 16, 130/73, and 96% on RA. Workup showed no leukocytosis, no anemia, d-dimer 0.62 (normal when age adjusted), chemistries unremarkable, initial troponin negative and UA not consistent with UTI. Patient tested positive for RSV. EKG showed sinus rhythm and leftward axis. CXR showed no acute cardiopulmonary abnormality. Review of Systems Review of Systems: All systems reviewed & are unremarkable except as noted in HPI and below [facility] Past Medical History Medical History (Updated 10/18/23 @ 15:17 by Laura Farris APRN) Anxiety Facial fracture due to fall R side near eye Osteoporosis Surgical History Surgical History History of colonoscopy (01/2019) Diverticulosis and internal hemorrhoids. History of partial thyroidectomy Status post-operative repair of closed fracture of left hip (08/2011) Family History Family History Other Cancer Colon polyp Diabetes mellitus Social History Social History Social History: Surrogate medical decision maker: Abiola Mireles, daughter. Code status: Full code. Smoking status: Never smoker Second hand tobacco smoke exposure: No Alcohol intake: current Drinks per week: 1 Substance use: unknown Substance use type: does not use Do You Feel Safe in your Home?: Yes Lack of Transportation: No Lack of Food: Never True Current Housing: I Have Housing Concerned About Future Housing: No Difficulty Paying Gas/Electric Bills: No Difficulty Paying for Meds: No Currently Unemployed: No Education: Grade School Difficulty w/ Childcare or Family Care: No Living arrangements: with family Additional living arrangements comments: The patient lives with her daughter in [place]. Occupation/Education: retired Gender identity (if verbalized by the patient): Female Spiritual care concerns: No Meds Home Medications and Allergies Home Medications Medication Instructions Recorded Confirmed Type multivitamin 1 tablet PO DAILY 01/22/21 10/18/23 History acetaminophen 325 mg capsule 325 mg PO Q6H PRN Pain 02/27/23 10/18/23 History (Tylenol) calcium carbonate 600 mg-vi
[2023-10-18 13:43] LABS: Troponin I < 0.012 ng/mL (0.000-0.034)
--- NOTE | 2023-10-18 13:56 | PC.NURSE ---
Pt daughter, Abiola, was called to update on patient status and informed to bring in pt med list.
--- NOTE | 2023-10-18 14:23 | PC.NURSE ---
This patient, Lilliana Booth, was admitted to 2 Medical Room 240-01. Patient/family oriented to hospital policies and general routines including ID bracelet, bed and alarms, visiting hours, pain management, procedures, bathroom and other care routines, personal items, smoking policy, room service/diet, and visiting hours. Information on how to activate the Rapid Response Team has been discussed. Patient/Family are encouraged to report perceived risks to care and to ask questions if they do not understand what they are told or what they should do.
[2023-10-18] MEDS: LACTATED RINGERS 1,000 ML 100 ML IV CONT (15:57)
[2023-10-18] MEDS: ACETAMINOPHEN 325 MG TABLET 650 MG PO (16:00)
[2023-10-18] MEDS: BENZONATATE 100 MG CAPSULE PO (17:32)
[2023-10-18] MEDS: guaiFENesin 12 HR 600 MG TABCR PO (20:21)
[2023-10-18] MEDS: SERTRALINE HCL 50 MG TABLET PO (20:21)
[2023-10-19] VITALS (10 sets, daily range): BP systolic 123–150; BP diastolic 50–73; PULSE 72–88; RESP 16–20; TEMP 36.6–37; O2SAT 94–98
[2023-10-19 06:03] LABS: Hemoglobin 11.8 g/dL (12.0-15.0); Mean Corpuscular HGB Conc 31.9 g/dl (32-36); Mean Corpuscular Hemoglobin 31.2 pg (26-34); Mean Corpuscular Volume 97.9 fl (80-100); Platelet Count Result 223 k/mm3 (150-375); Red Blood Count 3.78 M/mm3 (4.2-5.4); Red Cell Distribution Width 12.8 % (11.5-14.5); White Blood Count 7.4 K/mm3 (4.5-10.0)
[2023-10-19 06:22] LABS: Anion Gap 3 mmol/L (8-16); Blood Urea Nitrogen 18 mg/dL (7-17); Calcium 8.7 mg/dL (8.4-10.2); Carbon Dioxide 30 mmol/L (22-30); Chloride 106 mmol/L (98-107); Estimated CRCL calculation 43 ml/min; Estimated Glomerular Filt Rate > 60; Glucose 92 mg/dL (65-110); Potassium 3.8 mmol/L (3.4-5.0); Sodium 139 mmol/L (137-145)
--- NOTE | 2023-10-19 07:02 | PM.IMPN ---
Progress Note: A&P Assessment and Plan (1) Syncope: Qualifiers: Syncope type: unspecified Qualified Code(s): R55 - Syncope and collapse Code(s): R55 - Syncope and collapse Status: Acute Assessment and Plan: -previous hx of syncope secondary to vertigo, given 25 of meclizine with +/- improvement. continue prn. -troponin: <0.012 x2 -EKG: sinus rhythm and leftward axis -check orthostatic daily (2) Respiratory syncytial virus (RSV): Code(s): B33.8 - Other specified viral diseases Status: Acute Assessment and Plan: -tested positive for RSV on 10/18/23 -continue supportive measures Tessalon Perles Tylenol prn Mucinex Q12H Lozenge prn Zofran prn Plan Home Meds/Chronic Conditions - OTC/Supplements: calcium, vitamin D3, fish oil, Tylenol Arthritis, vitamin B6, multivitamins - anxiety: continue home sertraline Diet: regular GI Prophylaxis: not currently indicated DVT Prophylaxis: SCDs, Lovenox Lines: pIV Code Status: Full Code Subjective Date/time seen: 10/19/23 07:02 Interval history: Chief Complaint: Syncope Narrative: 82 y/o F presents here with syncope and URI with PMH of anxiety, vertigo, and osteoporosis. Patient presented with syncope for approximately 1 minute. Patient reports that she was ambulating with her walker when she developed a pre-syncopal sensation she described as being sick to her stomach, dizziness, and like she would fall to the floor. Daughter assisted patient to a nearby chair. Shortly after sitting patient had the syncopal episode with associated diaphoresis. No preceding palpitations, CP, or clamminess. No seizure like activity witnessed. Post-syncope patient developed brief episode of nausea without vomiting and mildly diaphoretic. Patient reports she has been feeling unwell for the past few days, started around 10/15. She has been experiencing cough (scant/productive), congestion, HARR[place], and sinus pressure. No diarrhea. Has a hx of intermittent vertigo with subsequent syncope - does not take any medications for this at home. Last episode of vertigo and syncope/near syncope was 1 year ago. Despite receiving 1L of IVF patient continues to feel unwell, having difficulty describing symptoms. Currently endorsing HARRINGTON across eyebrows and nasal bridge/eyes. Currently denying chest pain, SOB, or dizziness. Reports she has been experiencing symptom where when she reaches for objects the depth is incorrect and feels off (i.e depth perception off). 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 Last eye exam years ago . Also reports her short term memory has been slipping more lately. Initial VS: 97.2F, HR 65, RR 16, 130/73, and 96% on RA. ED Workup:showed no leukocytosis, no anemia, d-dimer 0.62 (normal when age adjusted), chemistries unremarkable, initial troponin negative and UA not consistent with UTI. Patient tested positive for RSV. EKG showed sinus rhythm and leftward axis. CXR showed no acute cardiopulmonary abnormality. Interval Hx: 10/19/2023, patient seen this morning in she is resting with eyes open in no acute distress denies any overnight complaints. Patient does admit to ongoing nonproductive cough, she denies any chest pain nausea vomiting fever chills. Review of Systems Review of Systems: All systems reviewed & are unremarkable except as noted in HPI and below Exam Const: General: comfortable and no acute distress Other: frail, female, HENMT: Face/Nose/Sinus: Normal nares present Mouth: Yes moist mucous membranes Eyes: General: appearance normal, both eyes and all related structures Sclera: sclerae normal Pupils: Equal, round and reactive pupils present EOM: EOMs intact bilaterally Resp: Effort & Inspection: normal respiratory effort Auscultation: clear to auscultation bilaterally Cardio: Rate: regular rate Rhythm: regular rhythm Other: S1-S2 present without murmur, rub, ectopy Skin: General s
[2023-10-19] MEDS: OMEGA 3 POLYUNSAT FATTY ACIDS 1 GM CAP PO (08:40)
[2023-10-19] MEDS: guaiFENesin 12 HR 600 MG TABCR PO ×2 (08:40→20:20)
[2023-10-19] MEDS: BENZONATATE 100 MG CAPSULE PO ×3 (08:41→17:13)
[2023-10-19] MEDS: MULTIVITAMINS THERAPEUTIC TAB (*BKC) 1 TABLET PO (08:41)
[2023-10-19] MEDS: PYRIDOXINE HCL 50 MG TABLET 100 MG PO (08:41)
[2023-10-19] MEDS: ENOXAPARIN 40 MG/0.4 ML SYRINGE SUB-Q (08:42)
[2023-10-19] MEDS: SERTRALINE HCL 50 MG TABLET PO (20:20)
[2023-10-20] VITALS (11 sets, daily range): BP systolic 134–179; BP diastolic 70–83; PULSE 72–91; RESP 16–18; TEMP 36.3–36.8; O2SAT 91–100
--- NOTE | 2023-10-20 | ECHO_ITS ---
Patient Info Name: Lilliana Booth Age: 82 years : 1940 Gender: Female Ht: 63 in Wt: 119 lbs BSA: 1.55 m2 HR: 100 bpm BP: 158 / 74 mmHg Technical Quality: Fair Exam Date: 10/20/2023 2:33 PM Exam Location: Echo Lab Exam Room: 240 Patient Status: Inpatient Admit Date: 10/19/2023 Staff Ordering Physician: Jazlyn Euceda APRN Aitchbone Breaker: Lynne Velazquez RDCS Attending Provider: Cas Bell MD Referring Physician: Ok HOLLEY; Exam Type: CA echo doppler color flow Study Info Indications - syncope/ RSV Complete two-dimensional, color flow and Doppler transthoracic echocardiogram is performed. Summary 1. Complete two-dimensional, color flow and Doppler transthoracic echocardiogram is performed. 2. Left ventricular chamber dimension is normal. 3. Left ventricular systolic function is normal, estimated at 65-70%. 4. The left ventricular diastolic function is grade I diastolic dysfunction. 5. E/e' 14 is mildly elevated. 6. There is mild aortic valve sclerosis. 7. The mitral valve has moderately calcified annulus. 8. No pulmonary hypertension, estimated pulmonary arterial systolic pressure is 32 mmHg. Left Ventricle E/e' 14 is mildly elevated. Left ventricular chamber dimension is normal. Left ventricular systolic function is normal, estimated at 65-70%. The left ventricular diastolic function is grade I diastolic dysfunction. Right Ventricle Right ventricular chamber dimension is normal. Right ventricular systolic function is normal. Left Atria Left atrial chamber dimension is normal. Right Atria Right atrial chamber dimension is normal. Aortic Valve The aortic valve is trileaflet. There is mild aortic valve sclerosis. There is no aortic valve stenosis. There is no aortic valve regurgitation. Pulmonic Valve There is no pulmonic regurgitation. Mitral Valve The mitral valve has moderately calcified annulus. There is no mitral valve stenosis. There is no mitral valve regurgitation. Tricuspid Valve There is no tricuspid valve regurgitation. No pulmonary hypertension, estimated pulmonary arterial systolic pressure is 32 mmHg. Pericardium/Pleural There is no pericardial effusion. Inferior Vena Cava Normal inferior vena cava with >50% collapse upon inspiration consistent with normal right atrial pressure, 5 mmHg. Aorta The aortic root size at the sinus of Valsalva is normal. Left Ventricular Outflow Tract Name Value Normal LVOT 2D LVOT Diameter 2.0 cm LVOT Doppler LVOT Peak Gradient 5 mmHg LVOT Mean Gradient 3 mmHg LVOT VTI 22 cm LVOT VTI/AV VTI Ratio 0.9 LVOT Stroke Volume 66 ml LVOT CO 14.2 l/min LVOT CI 9.1 l/min/m2 Pulmonic Valve Name Value Normal PV Doppler PV Peak Gradient 4
[2023-10-20 04:53] LABS: Basophils Percent Auto 0.5 % (0.2-1.2); Eosinophils Absolute Auto 0.2 K/mm3 (0-0.3); Eosinophils Percent Auto 2.7 % (0-4.4); Hemoglobin 11.8 g/dL (12.0-15.0); Immature Granulocyte Absolute 0.02 K/mm3 (0.00-0.031); Immature Granulocyte Percent A 0.3 % (0-0.5); Lymphocytes Absolute Auto 1.95 K/mm3 (0.9-3.2); Lymphocytes Percent Auto 26.1 % (18.3-44.2); Mean Corpuscular HGB Conc 32.8 g/dl (32-36); Mean Corpuscular Hemoglobin 31.8 pg (26-34); Mean Platelet Volume 9.9 fl (7.4-10.4); Monocytes Absolute Auto 0.6 K/mm3 (0.1-0.6); Monocytes Percent Auto 8.6 % (2.6-8.5); Neutrophils Absolute Auto 4.6 K/mm3 (1.3-6.7); Neutrophils Percent Auto 61.8 % (45.5-73.1); Platelet Count Result 223 k/mm3 (150-375); Red Blood Count 3.71 M/mm3 (4.2-5.4); Red Cell Distribution Width 12.4 % (11.5-14.5); White Blood Count 7.5 K/mm3 (4.5-10.0)
[2023-10-20 05:19] LABS: Alanine Aminotransferase 12 U/L (6-35); Albumin Level 3.4 g/dL (3.5-5.1); Alkaline Phosphatase 64 U/L (38-126); Anion Gap 2 mmol/L (8-16); Aspartate Amino Transferase 26 U/L (14-36); Bilirubin,Total 0.5 mg/dL (0.2-1.3); Blood Urea Nitrogen 20 mg/dL (7-17); Calcium 8.9 mg/dL (8.4-10.2); Carbon Dioxide 29 mmol/L (22-30); Chloride 105 mmol/L (98-107); Estimated CRCL calculation 50 ml/min; Estimated Glomerular Filt Rate > 60; Glucose 102 mg/dL (65-110); Potassium 3.3 mmol/L (3.4-5.0); Sodium 136 mmol/L (137-145)
[2023-10-20] MEDS: BENZONATATE 100 MG CAPSULE PO ×3 (09:48→18:07)
[2023-10-20] MEDS: OMEGA 3 POLYUNSAT FATTY ACIDS 1 GM CAP PO (09:48)
[2023-10-20] MEDS: guaiFENesin 12 HR 600 MG TABCR PO (09:48)
[2023-10-20] MEDS: PYRIDOXINE HCL 50 MG TABLET 100 MG PO (09:48)
[2023-10-20] MEDS: MULTIVITAMINS THERAPEUTIC TAB (*BKC) 1 TABLET PO (09:48)
[2023-10-20] MEDS: ENOXAPARIN 40 MG/0.4 ML SYRINGE SUB-Q (09:49)
--- NOTE | 2023-10-20 12:47 | PM.DS ---
DS: Admitting Diagnosis Discharge Date 10/20/2023 Admitting Diagnosis Dehydration DS: Discharge Diagnosis Discharge Diagnosis (1) Syncope: Qualifiers: Syncope type: unspecified Qualified Code(s): R55 - Syncope and collapse Code(s): R55 - Syncope and collapse Status: Acute Assessment and Plan: -orthostatic vitals are negative (2) Respiratory syncytial virus (RSV): Code(s): B33.8 - Other specified viral diseases Status: Acute (3) Dehydration: Code(s): E86.0 - Dehydration Status: Acute DS: Summary Hospital Course Reason for hospitalization: 82 y/o F presents here with syncope and URI with PMH of anxiety, vertigo, and osteoporosis. Patient presented? with syncope for approximately 1 minute. Hospital Course: Patient reports that she was ambulating with her walker when she developed a pre-syncopal sensation she described as being sick to her stomach, dizziness, and like she would fall to the floor. Daughter assisted patient to a nearby chair. Shortly after sitting patient had the syncopal episode with associated diaphoresis. No preceding palpitations, CP, or clamminess. No seizure like activity witnessed. Post-syncope patient developed brief episode of nausea without vomiting and mildly diaphoretic. Patient reports she has been feeling unwell for the past few days, started around 10/15. She has been experiencing cough (scant/productive), congestion, [place], and sinus pressure. No diarrhea. Has a hx of intermittent vertigo with subsequent syncope - does not take any medications for this at home. Last episode of vertigo and syncope/near syncope was 1 year ago. Despite receiving 1L of IVF patient continues to feel unwell, having difficulty describing symptoms. Currently endorsing [place] across eyebrows and nasal bridge/eyes. Currently denying chest pain, SOB, or dizziness. Reports she has been experiencing symptom where when she reaches for objects the depth is incorrect and feels off (i.e depth perception off). 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 Last eye exam years ago . Also reports her short term memory has been slipping more lately. Initial VS: 97.2F, HR 65, RR 16, 130/73, and 96% on RA. Workup showed no leukocytosis, no anemia, d-dimer 0.62 (normal when age adjusted), chemistries unremarkable, initial troponin negative and UA not consistent with UTI. Patient tested positive for RSV. EKG showed sinus rhythm and leftward axis. CXR showed no acute cardiopulmonary abnormality. Status at Discharge Functional status at discharge: uses cane/walker Time Spent with Patient Time attestation: Total time spent providing and/or coordinating discharge services: Time spent: Less than 30 minutes Exam Const: General: comfortable and no acute distress Other: frail, female, HENMT: Face/Nose/Sinus: Normal nares present Mouth: Yes moist mucous membranes Eyes: General: appearance normal, both eyes and all related structures Sclera: sclerae normal Pupils: Equal, round and reactive pupils present EOM: EOMs intact bilaterally Resp: Effort & Inspection: normal respiratory effort Auscultation: clear to auscultation bilaterally Cardio: Rate: regular rate Rhythm: regular rhythm Other: S1-S2 present without murmur, rub, ectopy Skin: General skin exam: normal color and no rashes or lesions noted Wounds: no wounds Other: mild pallor Neuro: Cranial nerves: Yes Equal, round and reactive pupils present Speech: normal speech Motor exam (neuro): 5/5 motor strength present throughout Psych: Mental Status: mental status grossly normal Affect: normal affect Other: fair insight and judgment, pleasant. DS: Data Data Completed and Pending Completed studies during hospitalization: Ordering Physician: Jazlyn Euceda APRN Date of Service: 10/20/23 Procedure(s): CA echo doppler color flow Accession Number(s): [id number] cc: Jazlyn Euceda APRN; Rush Cai
--- NOTE | 2023-10-20 13:34 | P.CDI_ITS ---
CDI Query Clarification Request RSV has been identified with a positive swab, if able, please identify the underlying infectious process if known: * Pneumonia * Bronchitis * Upper respiratory infection * Lower respiratory infection * Other/Unknown <Palmira Frey RN - Last Filed: 10/20/23 13:36> Clarified Diagnosis Clarified Diagnosis: PNA <Jazlyn Euceda APRN - Last Filed: 10/20/23 13:37>
--- NOTE | 2023-10-20 13:34 | WPDCDIQUERY2 ---
CDI Query Clarification Request RSV has been identified with a positive swab, if able, please identify the underlying infectious process if known: Pneumonia Bronchitis Upper respiratory infection Lower respiratory infection Other/Unknown <Palmira Frey RN - Last Filed: 10/20/23 13:36> Clarified Diagnosis Clarified Diagnosis: PNA <Jazlyn Euceda APRN - Last Filed: 10/20/23 13:37>
== END 2023-10-20 18:15 | disposition home or self-care (01) | DRG 195 ==
LOC: ANHED 13:27 → ANH2MED 13:48
PROVIDERS: Student in an Organized Health Care Education/Training Program; Admitting Provider Internal Medicine; Emergency Provider Physician Assistant; PCP Family Medicine Adolescent Medicine; Visit Provider Nurse Practitioner
DX: J12.1 Respiratory syncytial virus pneumonia (principal); R55 Syncope and collapse; E86.0 Dehydration; F41.9 Anxiety disorder, unspecified; M81.0 Age-related osteoporosis without current pathological fracture; Z88.0 Allergy status to penicillin; Z90.89 Acquired absence of other organs; Z20.822 Contact with and (suspected) exposure to COVID-19
CPT/HCPCS: 36415; 70450; 71046; 80048; 80053; 81001; 82948; 83735; 84484; 85025; 85027; 85380; 85610; 85730; 87637; 93005; 93306; 96361; 96372; 96374; 97110; 97161; 97530; 99285; A9270; G0378; J1650; J2405; J7030; J7120